=== PATIENT | male | born 1980 | race Caucasian/White ===

== ENCOUNTER 2016-10-10 11:17 | Emergency (ER) | payer SELFPAY ==
[~2016-10-10] VITALS: Ht 180.3 cm; Wt 74.8 kg
[2016-10-10] MEDS ORDERED: DOXYCYCLINE MO100 M1 PO (11:27)
== END 2016-10-10 11:34 | disposition home or self-care (01) ==
LOC: ED 11:17
DX: Z00.8 Encounter for other general examination (principal)

== ENCOUNTER 2019-01-04 15:26 | Emergency (ER) | payer BC ==
[~2019-01-04] VITALS: Ht 180.3 cm; Wt 79.4 kg
--- OUTSIDE RECORDS SUMMARY | ~2019-01-04 | XMS ---
Demographics + + + | Address | [address] [facility] [address] | | | [place] [address] | + + + | Preferred Language | Unknown | + + + | Marital Status | Unknown | + + + | Yazidi Affiliation | Unknown | + + + | Race | Unknown | + + + | Ethnic Group | Unknown | + + + Author + + + | Author | [facility] | + + + | Organization | [facility] | + + + | Address | [address] | | | [place] [address] | + + + | Phone | | + + + Care Team Providers + + + + | Care Vibrator Operator Name | Role | Phone | + + + + Unavailable | Unavailable | + + + + PROBLEMS Unknown Problems ALLERGIES + + + + +--------+ | Substance | Reaction | Event Type | Date | Status | + + + + +--------+ | Penicillin | Unknown | Drug Allergy | Sep, | Active | + + + + +--------+ | Codeine | stomach upset | Drug Allergy | Sep, | Active | + + + + +--------+ SOCIAL HISTORY No smoking Hx information available PLAN OF CARE + +---------+ | Activity | Details | + +---------+ +---+ | | +---+ + + + | Follow Up | 2 Weeks Reason:null | + + + | Pending Test | GC Aptima | + + + | Pending Test | CBC | + + + | Pending Test | Miscellaneous Test | + + + VITAL SIGNS + + + + | Height | 71 in | 2016-10-10 | + + + + | Weight | 164.4 lbs | 2016-10-10 | + + + + | BMI | 22.93 kg/m2 | 2016-10-10 | + + + + | Temperature | 97.4 degrees Fahrenheit | 2016-10-10 | + + + + | Heart Rate | 78 /min | 2016-10-10 | + + + + | Blood pressure systolic | 109 mm Hg | 2016-10-10 | + + + + | Blood pressure diastolic | 72 mm Hg | 2016-10-10 | + + + + MEDICATIONS + + + + + + + +--------+ | Medicati | Instruct | Dosage | Frequenc | Start | End Date | Duration | Status | | on | ions | | y | Date | | | | + + + + + + + +--------+ | Ibuprofe | Orally | three to | 8h | Sep, | 17 Sep, | 5 days | Active | | n 200 MG | every 8 | four | | 2016 | 2016 | | | | | hours | tablet | | | | | | | | | with | | | | | | | | | food | | | | | | + + + + + + + +--------+ | Doxycycl | Orally | 1 tablet | 12h | 04 Sep, | 14 Sep, | 10 | Active | | ine | every 12 | | | 2016 | 2016 | day(s) | | | Monohydr | hrs | | | | | | | | ate 100 | | | | | | | | | mg | | | | | | | | + + + + + + + +--------+ | Hydrocod | Orally | 1 tablet | | Sep, | Sep, | 5 days | Active | | one-Acet | At | as | | 2016 | 2016 | | | | aminophe | bedtime | needed | | | | | | | n 5-325 | | for | | | | | | | MG | | pain, | | | | | | | | | sleeples | | | | | | | | | sness | | | | | | + + + + + + + +--------+ RESULTS No Results PROCEDURES + + + + + | Procedure | Date Ordered | Related Diagnosis | Body Site | + + + + + | Est Level IV | Oct 10, 2016 | | | | Extended | | | | + + + + + IMMUNIZATIONS No Known Immunizations"
--- OUTSIDE RECORDS SUMMARY | ~2019-01-04 | XMS | Clinical Summary ---
Demographics + + + | Address | [address] | | | [place] [address] | + + + | Home Phone | | + + + | Preferred Language | Unknown | + + + | Marital Status | Single | + + + | Taoist Affiliation | Unknown | + + + | Race | Unknown | + + + | Ethnic Group | Unknown | + + + Author + + + | Author | [facility] | | | and [place] | + + + | Organization | [facility] | | | and [place] | + + + | Address | Unknown | + + + | Phone | Unavailable | + + + Care Team Providers + +------+ + | Care Degreaser Operator Name | Role | Phone | + +------+ + | Phong Hearn MD | PCP | | + +------+ + Allergies Not on File Medications Not on file Active Problems Not on file Social History + +-------+ +--------+------+ | Tobacco Use | Types | Packs/Day | Years | Date | | | | | Used | | + +-------+ +--------+------+ | Never Assessed | | | | | + +-------+ +--------+------+ + + + | Sex Assigned at | Date Recorded | | | | + + + | Not on file | | + + + + + + + | Job Start Date | Occupation | Industry | + + + + | Not on file | Not on file | Not on file | + + + + + + + + | Travel History | Travel Start | Travel End | + + + + + + | No recent travel history available. | + + Last Filed Vital Signs Not on file Plan of Treatment + + + + + | Health Maintenance | Due Date | Last Done | Comments | + + + + + | Vaccine: | | | | | Dtap/Tdap/Td (1 - | 8 | | | | Tdap) | | | | + + + + + | Vaccine: Influenza | | | | | (#1) | 9 | | | + + + + + Results Not on filefrom Last 3 Months"
--- OUTSIDE RECORDS SUMMARY | ~2019-01-04 | XMS ---
Demographics + + + | Address | [address] [facility] [address] | | | [place] [address] | + + + | Preferred Language | Unknown | + + + | Marital Status | Unknown | + + + | Yazidism Affiliation | Unknown | + + + | Race | Unknown | + + + | Ethnic Group | Unknown | + + + Author + + + | Author | [facility] | + + + | Organization | [facility] | + + + | Address | [address] | | | [place] [address] | + + + | Phone | | + + + Care Team Providers + + + + | Care Prevention Specialist Name | Role | Phone | + + + + Unavailable | Unavailable | + + + + PROBLEMS Unknown Problems ALLERGIES Unknown Allergies SOCIAL HISTORY No smoking Hx information available PLAN OF CARE VITAL SIGNS MEDICATIONS Unknown Medications RESULTS No Results PROCEDURES No Known procedures IMMUNIZATIONS No Known Immunizations"
--- OUTSIDE RECORDS SUMMARY | ~2019-01-04 | XMS | Clinical Summary ---
Demographics + + + | Address | [address] | | | [place] [address] | + + + | Home Phone | | + + + | Preferred Language | Unknown | + + + | Marital Status | Single | + + + | Shinto Affiliation | Unknown | + + + | Race | Unknown | + + + | Ethnic Group | Unknown | + + + Author + + + | Author | [facility] | | | and [place] | + + + | Organization | [facility] | | | and [place] | + + + | Address | Unknown | + + + | Phone | Unavailable | + + + Care Team Providers + +------+ + | Care Grocery Supervisor Name | Role | Phone | + +------+ + | Phong eHarn MD | PCP | | + +------+ [...]
--- OUTSIDE RECORDS SUMMARY | ~2019-01-04 | XMS ---
Demographics + + + | Address | [address] [facility] [address] | | | [place] [address] | + + + | Preferred Language | Unknown | + + + | Marital Status | Unknown | + + + | Presybeterian Affiliation | Unknown | + + + | Race | Unknown | + + + | Ethnic Group | Unknown | + + + Author + + + | Author | [facility] | + + + | Organization | [facility] | + + + | Address | [address] | | | [place] [address] | + + + | Phone | | + + + Care Team Providers + + + + | Care Early Childhood Education Worker Name | Role | Phone | + + + + Unavailable | Unavailable | + + + + PROBLEMS Unknown Problems ALLERGIES Unknown Allergies SOCIAL HISTORY No smoking Hx information available PLAN OF CARE VITAL SIGNS MEDICATIONS Unknown Medications RESULTS No Results PROCEDURES No Known procedures IMMUNIZATIONS No Known Immunizations"
--- OUTSIDE RECORDS SUMMARY | ~2019-01-04 | XMS ---
Demographics + + + | Address | [address] [facility] [address] | | | [place] [address] | + + + | Preferred Language | Unknown | + + + | Marital Status | Unknown | + + + | Congregation Affiliation | Unknown | + + + | Race | Unknown | + + + | Ethnic Group | Unknown | + + + Author + + + | Author | [facility] | + + + | Organization | [facility] | + + + | Address | [address] | | | [place] [address] | + + + | Phone | | + + + Care Team Providers + + + + | Care Edge Runner Name | Role | Phone | + + + + Unavailable | Unavailable | + + + + PROBLEMS Unknown Problems ALLERGIES Unknown Allergies SOCIAL HISTORY No smoking Hx information available PLAN OF CARE VITAL SIGNS MEDICATIONS Unknown Medications RESULTS No Results PROCEDURES No Known procedures IMMUNIZATIONS No Known Immunizations"
--- OUTSIDE RECORDS SUMMARY | ~2019-01-04 | XMS | Clinical Summary ---
Demographics + + + | Address | [address] | | | [place] [address] | + + + | Home Phone | | + + + | Preferred Language | Unknown | + + + | Marital Status | Single | + + + | Congregation Affiliation | Unknown | + + + | Race | Unknown | + + + | Ethnic Group | Unknown | + + + Author + + + | Author | [facility] [employer] (Historical as of | | | 10-15-18) | + + + | Organization | [facility] [employer] (Historical as of | | | 10-15-18) | + + + | Address | Unknown | + + + | Phone | Unavailable | + + + Care Team Providers + +------+ + | Care Air Operations Manager Name | Role | Phone | + +------+ + | Phong Hearn MD | PP | | + +------+ + Allergies Not on File Current Medications Not on file Active Problems Not [...] on file | | + + + Plan of Treatment + + + + [...]
--- OUTSIDE RECORDS SUMMARY | ~2019-01-04 | XMS | Clinical Summary ---
Demographics + + + | Address | [address] | | | [place] [address] | + + + | Home Phone | | + + + | Preferred Language | Unknown | + + + | Marital Status | Single | + + + | Mu-Ism Affiliation | Unknown | + + + | Race | Unknown | + + + | Ethnic Group | Unknown | + + + Author + + + | Author | [facility] [employer] (Historical as of | | | 10-15-18) | + + + | Organization | [facility] [employer] (Historical as of | | | 10-15-18) | + + + | Address | Unknown | + + + | Phone | Unavailable | + + + Care Team Providers + +------+ + | Care Poultry Pinner Name | Role | Phone | + [...]
[~2019-01-04 15:26] MED LIST: BACTRIM DS TAB1 EACH PO; CLEOCIN HCL300 MG PO; DOXYCYCLINE MO100 M1 PO; IBUPROFEN800 MG PO
--- OUTSIDE RECORDS SUMMARY | 2019-01-04 15:28 | XMS ---
PreManage Notification: ALEX REICH Security Clinical Nursing Assistant Events No recent Security Events currently on file CRITERIA MET - Group Notification CARE PROVIDERS There are no care providers on record at this time. Kj has no Care Guidelines for this patient. Angel[place] VISIT COUNT (12 MO.) 1 [facility] TOTAL 1 NOTE: Visits indicate total known visits. ED/UCC VISIT TRACKING (12 MO.) 01/04/2019 15:27 [facility] [place] TYPE: Emergency COMPLAINT: - SOB INPATIENT VISIT TRACKING (12 MO.) No inpatient visits to display in this time frame [email or web address]
[2019-01-04] MEDS ORDERED: DULOXETINE HCL60 MG PO (15:37)
--- NOTE | 2019-01-05 11:22 | EKG ---
[facility] [address] [facility] [place], [place] [address] Signed Normal sinus rhythm Normal ECG No previous ECGs available Confirmed by ALVA LEIJA DO ([id number]) on 01/05/2019 11:21:57 AM Electronically Signed By: ALVA LEIJA DO 01/05/19 1122 PATIENT NAME: ALEX REICH LUCA Electrocardiogram DATE OF : 78 PHYSICIAN: ALVA LEIJA DO REPORT #: [id number] REPORT IS CONFIDENTIAL AND NOT TO BE RELEASED WITHOUT AUTHORIZATION
== END 2019-01-04 16:43 | disposition home or self-care (01) ==
LOC: ED 15:26
DX: R06.02 Shortness of breath (principal); Z88.0 Allergy status to penicillin; Z88.5 Allergy status to narcotic agent; Z79.899 Other long term (current) drug therapy
CPT/HCPCS: 71045; 80053; 83880; 84484; 85025; 85379; 93005; 93010; 99285-25

== ENCOUNTER 2021-03-21 11:43 | Emergency (ER) | payer OTHER ==
[~2021-03-21] VITALS: Ht 180.3 cm; Wt 86.2 kg
[~2021-03-21 11:43] MED LIST changes: +DULOXETINE HCL60 MG PO
--- OUTSIDE RECORDS SUMMARY | 2021-03-21 11:50 | XMS ---
PreManage Notification: ALEX REICH Security Associate Professor Of Economics Events No recent Security Events currently on file CRITERIA MET - Group Notification CARE PROVIDERS There are no care providers on record at this time. Kj has no Care Guidelines for this patient. Care History Medical/Surgical 01/05/2019 [facility] - PATIENT DOES NOT HAVE A PCP- - CHW CALLED PATIENT AND COULD NOT LEAVE A VOICEMAIL-MAILBOX IS FULL. - CHW SENT NO PCP LETTER E.D. VISIT COUNT (12 MO.) 1 [facility] TOTAL 1 NOTE: Visits indicate total known visits. ED/UCC VISIT TRACKING (12 MO.) 03/21/2021 11:[address] [facility] [place] TYPE: Emergency COMPLAINT: - SKIN PROBLEM INPATIENT VISIT TRACKING (12 MO.) No inpatient visits to display in this time frame [id number]
[2021-03-21] MEDS ORDERED: BENADRYL25 MG PO (12:26)
[2021-03-21] MEDS ORDERED: PREDNISONE20 MG PO (12:26)
[2021-03-21] MEDS ORDERED: CETIRIZINE HCL10 M1 PO (12:26)
[2021-03-21] MEDS ORDERED: NYSTATIN15 GM TOP (12:26)
== END 2021-03-21 12:43 | disposition home or self-care (01) ==
LOC: ED 11:43
DX: N48.5 Ulcer of penis (principal); Z88.5 Allergy status to narcotic agent; Z88.0 Allergy status to penicillin; Z79.899 Other long term (current) drug therapy
CPT/HCPCS: 86780; 99283

== ENCOUNTER 2021-05-08 08:36 | Emergency (ER) | payer OTHER ==
[~2021-05-08] VITALS: Ht 180.3 cm; Wt 86.2 kg
[~2021-05-08 08:36] MED LIST changes: +BENADRYL25 MG PO; +CETIRIZINE HCL10 M1 PO; +NYSTATIN15 GM TOP; +PREDNISONE20 MG PO
--- OUTSIDE RECORDS SUMMARY | 2021-05-08 08:44 | XMS ---
PreManage Notification: ALEX REICH Security Soil Conservation Teacher Events No recent Security Events currently on file CRITERIA MET - [facility] - Has Care Guidelines - Group Notification CARE PROVIDERS There are no care providers on record at this time. Kj has no Care Guidelines for this patient. Care History Medical/Surgical 03/24/2021 [facility] Advised patient to seek non life threatening care with provider and not ED. Patient understood. 01/05/2019 [facility] - PATIENT DOES NOT HAVE A PCP- - CHW CALLED PATIENT AND COULD NOT LEAVE A VOICEMAIL-MAILBOX IS FULL. - CHW SENT NO PCP LETTER E.D. VISIT COUNT (12 MO.) 2 [facility]. TOTAL 2 NOTE: Visits indicate total known visits. ED/UCC VISIT TRACKING (12 MO.) 05/08/2021 08:37 [facility] [place] TYPE: Emergency COMPLAINT: - CHEST PAIN, SOB, DIZZINESS 03/21/2021 11:44 [facility] [place] TYPE: Emergency COMPLAINT: - SKIN PROBLEM DIAGNOSES: - Rash and other nonspecific skin eruption - Allergy status to penicillin - Other termite inspector (current) drug therapy - Allergy status to narcotic agent - Ulcer of penis INPATIENT VISIT TRACKING (12 MO.) No inpatient visits to display in this time frame [id number]
--- NOTE | 2021-05-10 15:56 | EKG ---
[facility] [address] [facility] [place] [address] Signed Normal sinus rhythm Cannot rule out Anterior infarct , age undetermined Abnormal ECG When compared with ECG of 04-JAN-2019 15:38, No significant change was found Confirmed by JOSEP HUTSON MD ([id number]) on 05/10/2021 3:56:46 PM Electronically Signed By: JOSEP HUTSON MD 05/10/21 1556 PATIENT NAME: ALEX REICH LUCA Electrocardiogram DATE OF : 78 PHYSICIAN: JOSEP HUTSON MD REPORT #: [id number] REPORT IS CONFIDENTIAL AND NOT TO BE RELEASED WITHOUT AUTHORIZATION
== END 2021-05-08 12:27 | disposition home or self-care (01) ==
LOC: ED 08:36
DX: R07.9 Chest pain, unspecified (principal); Z88.0 Allergy status to penicillin; Z88.5 Allergy status to narcotic agent; Z79.899 Other long term (current) drug therapy; Z20.822 Contact with and (suspected) exposure to COVID-19
CPT/HCPCS: 36415; 71045; 80048; 84484; 85025; 93005; 93010; 99285-25; C9803; U0003

== ENCOUNTER 2022-01-31 17:03 | Emergency (ER) | payer OTHER ==
[~2022-01-31] VITALS: Ht 180.3 cm; Wt 86.3 kg
--- OUTSIDE RECORDS SUMMARY | 2022-01-31 17:11 | XMS ---
PreManage Notification: ALXE REICH Security Turnstile Attendant Events No recent Security Events currently on file CRITERIA MET - [facility] - Has Care Guidelines - Group Notification CARE PROVIDERS SONG BLANCHARD Nurse Practitioner: Family 05/09/2021-Current PHONE: [phone] Kj has no Care Guidelines for this patient. Care History Medical/Surgical 05/09/2021 [facility] Appropriate use of ED for chest pain. Patient stated he will call to make appt with PCP this afternoon. 03/24/2021 [facility] Advised patient to seek non life threatening care with provider and not ED. Patient understood. 01/05/2019 [facility] - PATIENT DOES NOT HAVE A PCP- - CHW CALLED PATIENT AND COULD NOT LEAVE A VOICEMAIL-MAILBOX IS FULL. - CHW SENT NO PCP LETTER E.D. VISIT COUNT (12 MO.) 3 [facility] TOTAL 3 NOTE: Visits indicate total known visits. ED/UCC VISIT TRACKING (12 MO.) 01/31/2022 17:04 [facility] [place] TYPE: Emergency COMPLAINT: - COLD SYMPTOMS 05/08/2021 08:37 [facility] [place] TYPE: Emergency COMPLAINT: - CHEST PAIN, SOB, DIZZINESS DIAGNOSES: - Chest pain, unspecified - Contact with and (suspected) exposure to COVID-19 - Other care home (current) drug therapy - Allergy status to penicillin - Allergy status to narcotic agent 03/21/2021 11:[address] [facility] [place] TYPE: Emergency COMPLAINT: - SKIN PROBLEM DIAGNOSES: - Allergy status to narcotic agent - Allergy status to penicillin - Ulcer of penis - Other care home (current) drug therapy - Rash and other nonspecific skin eruption INPATIENT VISIT TRACKING (12 MO.) No inpatient visits to display in this time frame [id number]
== END 2022-01-31 18:53 | disposition home or self-care (01) ==
LOC: ED 17:03
DX: J10.1 Influenza due to other identified influenza virus with other respiratory manifestations (principal); Z88.5 Allergy status to narcotic agent; Z88.0 Allergy status to penicillin; Z79.899 Other long term (current) drug therapy; Z20.822 Contact with and (suspected) exposure to COVID-19
CPT/HCPCS: 87502; 94664; 99283-25; A9270; C9803; U0003

== ENCOUNTER 2024-03-02 13:04 | Emergency (ER) | payer OTHER ==
[~2024-03-02] VITALS: Ht 180.3 cm; Wt 82.1 kg
[~2024-03-02 13:04] MED LIST changes: +EMTRICITABINE-1 EACH PO
[2024-03-02] MEDS ORDERED: ASPIRIN 81 MG CHEW PO ONE (13:15)
[2024-03-02 13:22] LABS: BASOPHILS 0.5 % (0-2); EOSINOPHILS 1.5 % (0-6); HEMATOCRIT 47.5 % (35.0-50.0); HEMOGLOBIN 17.3 g/dL (12.0-18.0); LYMPHOCYTES 12.2 % (24-44); MCH 32.4 (27-36); MCHC 36.5 g/dl (30-36); MCV 88.7 fl (81-99); MONOCYTES 8.1 % (0-12); NEUTROPHILS 77.7 % (39-80); PLATELET COUNT 157 K/uL (140-440); RBC 5.35 M/ul (4.3-5.7); RDW 13.5 (10.5-15.0)
[2024-03-02 13:49] LABS: ALBUMIN 3.9 g/dL (3.4-5.0); ALBUMIN/GLOBULIN RATIO 0.98 (1.1-2.4); ANION GAP 13.2 (7-21); BILIRUBIN, TOTAL 1.9 ng/dL (0.2-1.0); CALCIUM 9.2 mg/dL (8.5-10.1); CREATININE, SERUM 1.25 mg/dL (0.70-1.30); MAGNESIUM 2.1 mg/dL (1.8-2.4); POTASSIUM 4.2 mmol/L (3.5-5.1); PROTEIN, TOTAL 7.9 g/dL (6.4-8.2)
[2024-03-02 14:09] LABS: INFLUENZA B NAA NEGATIVE (NEGATIVE); RESPIRATORY SYNCYTIAL VIR NAA NEGATIVE (NEGATIVE)
[2024-03-02 16:41] VITALS: BP 113/78
--- NOTE | 2024-03-03 11:52 | EKG ---
[facility] [address] [facility] [place] [address] Signed Normal sinus rhythm Minimal voltage criteria for LVH, may be normal variant ( Conway product ) Borderline ECG When compared with ECG of 08-MAY-2021 08:40, No significant change was found Confirmed by Joss Spears DO ([id number]) on 03/03/2024 11:52:01 AM Electronically Signed By: JOSS SPEARS DO 03/03/24 1152 PATIENT NAME: ALEX REICH LUCA Electrocardiogram DATE OF : 78 PHYSICIAN: JOSS SPEARS DO REPORT #: [id number] REPORT IS CONFIDENTIAL AND NOT TO BE RELEASED WITHOUT AUTHORIZATION
== END 2024-03-02 16:41 | disposition home or self-care (01) ==
LOC: ED 13:04
PROVIDERS: Emergency Medicine
DX: R07.89 Other chest pain (principal); I50.9 Heart failure, unspecified; Z88.5 Allergy status to narcotic agent; Z88.0 Allergy status to penicillin; Z79.899 Other long term (current) drug therapy
CPT/HCPCS: 36415; 71045; 71260; 80053; 83735; 83880; 84484; 85025; 87502; 93005; 93010; 99285-25; A9270; Q9967; U0002

== ENCOUNTER 2024-08-11 18:42 | Emergency (ER) | payer OTHER ==
[~2024-08-11] VITALS: Ht 180.3 cm; Wt 82.2 kg
[2024-08-11] MEDS ORDERED: VRAYLAR1.5 MG PO (19:19)
[2024-08-11] MEDS ORDERED: ESCITALOPRAM OX10 MG PO (19:19)
[2024-08-11] MEDS ORDERED: DIPHTH,PERTUSS(ACELL),TET VAC 0.5 ML SYRINGE IM ONE (19:45)
[2024-08-11] MEDS ORDERED: DOXYCYCLINE HYCLATE 100 MG HOME.PACK PO ONE (19:45)
[2024-08-11] MEDS ORDERED: DOXYCYCLINE HY100 MG PO (19:46)
[2024-08-11 20:30] VITALS: BP 125/83
== END 2024-08-11 20:30 | disposition home or self-care (01) ==
LOC: ED 18:42
DX: L02.416 Cutaneous abscess of left lower limb (principal); Z79.899 Other long term (current) drug therapy; Z88.0 Allergy status to penicillin; Z88.5 Allergy status to narcotic agent
CPT/HCPCS: 10060; 87070; 87186; 87205; 90471; 90715; 99283-25; A9270

== ENCOUNTER 2024-08-14 10:52 | Emergency (ER) | payer OTHER ==
[~2024-08-14] VITALS: Ht 180.3 cm; Wt 82.0 kg
[~2024-08-14 10:52] MED LIST changes: +DOXYCYCLINE HY100 MG PO; +ESCITALOPRAM OX10 MG PO; +VRAYLAR1.5 MG PO
[2024-08-14] MEDS ORDERED: ASPIRIN EC325 MG PO (11:14)
[2024-08-14] MEDS ORDERED: NITROGLYCERIN 0.4 MG SUBL SL PRN (11:15)
[2024-08-14 11:33] LABS: BASOPHILS 0.5 % (0.2-1.2); EOSINOPHILS 1.1 % (0.8-7.0); HEMATOCRIT 47.4 % (40.1-51.0); HEMOGLOBIN 17.1 g/dL (13.7-17.5); LYMPHOCYTES 34.8 % (21.8-53.1); MCH 31.5 PG (25.7-32.2); MCHC 36.1 g/dL (32.3-36.5); MCV 87.5 fL (79.0-92.2); MONOCYTES 9.2 % (5.3-12.2); NEUTROPHILS 54.1 % (34.0-67.9); PLATELET COUNT 167 K/uL (163-337); RBC 5.42 M/uL (4.63-6.08)
[2024-08-14 11:51] LABS: ALBUMIN 3.6 g/dL (3.4-5.0); ALBUMIN/GLOBULIN RATIO 0.92 (1.1-2.4); ANION GAP 13.2 (7-21); BILIRUBIN, TOTAL 0.9 mg/dL (0.2-1.0); BUN/CREATININE RATIO 13.68 (6.0-28.6); CALCIUM 9.1 mg/dL (8.5-10.1); CREATININE, SERUM 0.95 mg/dL (0.70-1.30); MAGNESIUM 2.1 mg/dL (1.8-2.4); POTASSIUM 4.2 mmol/L (3.5-5.1); PROTEIN, TOTAL 7.5 g/dL (6.4-8.2)
--- NOTE | 2024-08-14 13:07 | EKG ---
[facility] [address] [facility] [place], [place] [address] Signed Normal sinus rhythm Cannot rule out Anterior infarct , age undetermined Abnormal ECG When compared with ECG of 02-MAR-2024 13:13, No significant change was found Confirmed by Joss Spears DO ([id number]) on 08/14/2024 1:07:09 PM Electronically Signed By: JOSS SPEARS DO 08/14/24 1307 PATIENT NAME: RACHANAALEX Electrocardiogram DATE OF : 78 PHYSICIAN: JOSS SPEARS DO REPORT #: [id number] REPORT IS CONFIDENTIAL AND NOT TO BE RELEASED WITHOUT AUTHORIZATION
[2024-08-14 13:17] VITALS: BP 140/76
== END 2024-08-14 13:22 | disposition home or self-care (01) ==
LOC: ED 10:52
PROVIDERS: Emergency Medicine
DX: R07.9 Chest pain, unspecified (principal); L02.416 Cutaneous abscess of left lower limb; I50.9 Heart failure, unspecified; Z88.5 Allergy status to narcotic agent; Z88.0 Allergy status to penicillin; Z79.82 Long term (current) use of aspirin; Z79.899 Other long term (current) drug therapy
CPT/HCPCS: 36415; 71045; 80053; 83735; 84484; 85025; 85379; 93005; 93010; 99285-25

== ENCOUNTER 2024-08-15 13:23 | Emergency (ER) | payer OTHER ==
[~2024-08-15] VITALS: Ht 180.3 cm; Wt 86.0 kg
[~2024-08-15 13:23] MED LIST changes: +ASPIRIN EC325 MG PO
[2024-08-15 13:36] VITALS: BP 134/88
== END 2024-08-15 13:46 | disposition home or self-care (01) ==
LOC: ED 13:23
DX: S01.01XA Laceration without foreign body of scalp, initial encounter (principal); W22.8XXA Striking against or struck by other objects, initial encounter; I50.9 Heart failure, unspecified; Z88.5 Allergy status to narcotic agent; Z88.0 Allergy status to penicillin; Z79.899 Other long term (current) drug therapy
CPT/HCPCS: 99283

== ENCOUNTER 2024-09-23 00:50 | Emergency (ER) | payer OTHER ==
[~2024-09-23] VITALS: Ht 180.3 cm; Wt 81.2 kg
[2024-09-23] MEDS ORDERED: VALACYCLOVIR500 MG PO (01:07)
[2024-09-23] MEDS ORDERED: HYDROCODONE/ACETA 5/325 TAB PO ONE (01:15)
[2024-09-23] MEDS ORDERED: ONDANSETRON ODT8 MG PO (02:49)
[2024-09-23] MEDS ORDERED: PERCOCET 5-3251 EACH PO (02:49)
[2024-09-23] MEDS ORDERED: CLEOCIN HCL300 MG PO (02:54)
[2024-09-23] MEDS ORDERED: ONDANSETRON 4 MG HOME.PACK SL ONE (03:00)
[2024-09-23] MEDS ORDERED: OXYCODONE/ACETAMINOPHEN 1 TAB HOME.PACK PO ONE (03:00)
[2024-09-23 04:09] VITALS: BP 144/89
== END 2024-09-23 04:10 | disposition home or self-care (01) ==
LOC: ED 00:50
DX: S02.32XA Fracture of orbital floor, left side, initial encounter for closed fracture (principal); S02.2XXA Fracture of nasal bones, initial encounter for closed fracture; S02.412A LeFort II fracture, initial encounter for closed fracture; Y04.8XXA Assault by other bodily force, initial encounter; Z79.82 Long term (current) use of aspirin; Z79.899 Other long term (current) drug therapy; Z88.5 Allergy status to narcotic agent; Z88.0 Allergy status to penicillin
CPT/HCPCS: 70450; 70486; 72125; 99284-25; A9270